=== PATIENT | female | born 1990 | race Caucasian/White ===

== ENCOUNTER 2018-04-13 14:45 | Observation (INO) | payer MEDICAID ==
[~2018-04-13] VITALS: Ht 165.1 cm; Wt 76.2 kg
[2018-04-13] MEDS ORDERED: PNV1TABL76 PO (15:14)
[2018-04-13] MEDS ORDERED: ACETAMINOPHEN 500MG TABLET PO NR (15:45)
[2018-04-13] MEDS ORDERED: LACTATED RINGERS 1,000 ML IV SCH (15:45)
[2018-04-13 16:10] LABS: CLARITY URINE CLEAR (CLEAR); COLOR URINE YELLOW (YELLOW); KETONES URINE NEGATIVE (NEGATIVE); LEUKOCYTE ESTERASE URINE 2+ (NEGATIVE); NITRITE URINE NEGATIVE (NEGATIVE); OCCULT BLOOD URINE NEGATIVE (NEGATIVE); PH URINE 7.5 (4.5-8.0); PROTEIN URINE NEGATIVE (NEGATIVE); SPECIFIC GRAVITY URINE 1.016 (1.005-1.030); UROBILINOGEN URINE 0.2 E.U./dL (0.2-1.0)
== END 2018-04-13 18:00 | disposition home or self-care (01) ==
LOC: L&D 14:45 → EDSEX 14:45
PROVIDERS: ADMIT Obstetrics & Gynecology; ATTEND Obstetrics & Gynecology
DX: O26.892 Other specified pregnancy related conditions, second trimester (principal); R10.32 Left lower quadrant pain; Z3A.21 21 weeks gestation of pregnancy
CPT/HCPCS: 81003; 96360; 99281; G0378; J7120

== ENCOUNTER 2018-04-16 08:46 | Observation (INO) | payer MEDICAID ==
[~2018-04-16] VITALS: Ht 165.1 cm; Wt 81.6 kg
[~2018-04-16 08:46] MED LIST: PNV1TABL76 PO
== END 2018-04-16 10:30 | disposition home or self-care (01) ==
LOC: L&D 08:46 → EDSEX 08:46
PROVIDERS: ADMIT Specialist; ATTEND Specialist
DX: O26.892 Other specified pregnancy related conditions, second trimester (principal); R10.10 Upper abdominal pain, unspecified; Z3A.21 21 weeks gestation of pregnancy
CPT/HCPCS: 99281; G0378

== ENCOUNTER 2018-04-19 16:55 | Emergency (ER) | payer MEDICAID ==
[~2018-04-19] VITALS: Ht 165.1 cm; Wt 82.0 kg
[2018-04-19 18:01] LABS: CLARITY URINE CLEAR (CLEAR); COLOR URINE YELLOW (YELLOW); KETONES URINE NEGATIVE (NEGATIVE); LEUKOCYTE ESTERASE URINE TRACE (NEGATIVE); NITRITE URINE NEGATIVE (NEGATIVE); OCCULT BLOOD URINE NEGATIVE (NEGATIVE); PH URINE 7.5 (4.5-8.0); PROTEIN URINE NEGATIVE (NEGATIVE); SPECIFIC GRAVITY URINE 1.013 (1.005-1.030); UROBILINOGEN URINE 0.2 E.U./dL (0.2-1.0)
[2018-04-19 18:15] LABS: BASOPHILS % 1.1 % (0.0-2.0); EOSINOPHILS % 4.2 % (0.0-5.0); HEMATOCRIT. 35.4 % (36.0-48.0); HEMOGLOBIN. 12.1 g/dL (12.0-16.0); LYMPHOCYTES % 23.8 % (20.0-50.0); MEAN CORPUSCULAR VOLUME 87.5 fL (81.0-99.0); MONOCYTES % 6.8 % (2.0-8.0); NEUTROPHILS % 64.1 % (40.0-76.0); PLATELET 276 x1000/uL (130-400); RED BLOOD CELL COUNT 4.05 mill/uL (4.2-5.4); RED CELL DISTRIBUTION WIDTH 13.1 % (11.6-14.6)
[2018-04-19 18:23] LABS: CHLORIDE 107 mEq/L (98-107)
[2018-04-19 18:25] LABS: INR 0.9; PROTHROMBIN TIME 9.4 sec (9.4-11.6)
[2018-04-20] MEDS ORDERED: ACETAMINOPHEN 325MG TABLET PO ONE (01:30)
[2018-04-20 03:05] VITALS: BP 117/61
[2018-04-20] MEDS ORDERED: ACETAMINOPHEN 500MG TABLET PO SCH (04:42)
== END 2018-04-20 06:00 | disposition home or self-care (01) ==
LOC: ER 17:07 → L&D 04-20 04:14
PROVIDERS: ADMIT Specialist; ATTEND Specialist
DX: O26.892 Other specified pregnancy related conditions, second trimester (principal); R10.11 Right upper quadrant pain; O99.332 Smoking (tobacco) complicating pregnancy, second trimester; F17.210 Nicotine dependence, cigarettes, uncomplicated; Z3A.22 22 weeks gestation of pregnancy
CPT/HCPCS: 36415; 76705; 80053; 81003; 83690; 85025; 85610; 93005; 99285; G0378

== ENCOUNTER 2018-04-23 11:31 | Observation (INO) | payer MEDICAID ==
[2018-04-23 13:41] LABS: CLARITY URINE CLEAR (CLEAR); COLOR URINE YELLOW (YELLOW); KETONES URINE NEGATIVE (NEGATIVE); LEUKOCYTE ESTERASE URINE 1+ (NEGATIVE); NITRITE URINE NEGATIVE (NEGATIVE); OCCULT BLOOD URINE NEGATIVE (NEGATIVE); PROTEIN URINE NEGATIVE (NEGATIVE); SPECIFIC GRAVITY URINE 1.023 (1.005-1.030); UROBILINOGEN URINE 0.2 E.U./dL (0.2-1.0)
== END 2018-04-23 15:00 | disposition home or self-care (01) ==
LOC: L&D 11:31
PROVIDERS: ADMIT Obstetrics & Gynecology; ATTEND Obstetrics & Gynecology
DX: O99.89 Other specified diseases and conditions complicating pregnancy, childbirth and the puerperium (principal); M54.5 Low back pain; Z3A.22 22 weeks gestation of pregnancy
CPT/HCPCS: 76805; 81003; G0378; 99281

== ENCOUNTER 2018-05-16 09:13 | Observation (INO) | payer MEDICAID ==
[~2018-05-16] VITALS: Ht 165.1 cm; Wt 88.5 kg
[2018-05-16] MEDS ORDERED: SODIUM CHLORIDE 0.9% 1,000 ML IV SCH (09:45)
[2018-05-16 10:55] LABS: CLARITY URINE CLEAR (CLEAR); COLOR URINE YELLOW (YELLOW); KETONES URINE NEGATIVE (NEGATIVE); LEUKOCYTE ESTERASE URINE NEGATIVE (NEGATIVE); NITRITE URINE NEGATIVE (NEGATIVE); OCCULT BLOOD URINE NEGATIVE (NEGATIVE); PH URINE 7.5 (4.5-8.0); PROTEIN URINE NEGATIVE (NEGATIVE); SPECIFIC GRAVITY URINE 1.011 (1.005-1.030); UROBILINOGEN URINE 0.2 E.U./dL (0.2-1.0)
== END 2018-05-16 11:25 | disposition home or self-care (01) ==
LOC: L&D 09:13
PROVIDERS: ADMIT Specialist; ATTEND Specialist
DX: O26.892 Other specified pregnancy related conditions, second trimester (principal); R10.31 Right lower quadrant pain; R11.0 Nausea; Z3A.26 26 weeks gestation of pregnancy
CPT/HCPCS: 81003; 96360; 99281; G0378; J7040; 96361

== ENCOUNTER 2018-05-16 12:12 | Emergency (ER) | payer MEDICAID ==
[~2018-05-16] VITALS: Ht 165.1 cm; Wt 89.0 kg
[2018-05-16 13:53] LABS: BASOPHILS % 0.8 % (0.0-2.0); EOSINOPHILS % 6.6 % (0.0-5.0); HEMATOCRIT. 36.1 % (36.0-48.0); HEMOGLOBIN. 12.2 g/dL (12.0-16.0); LYMPHOCYTES % 25.4 % (20.0-50.0); MEAN CORPUSCULAR HEMOGLOBIN 29.8 pg (28.0-32.0); MEAN CORPUSCULAR VOLUME 88.2 fL (81.0-99.0); MONOCYTES % 5.5 % (2.0-8.0); NEUTROPHILS % 61.7 % (40.0-76.0); PLATELET 246 x1000/uL (130-400); RED BLOOD CELL COUNT 4.09 mill/uL (4.2-5.4); RED CELL DISTRIBUTION WIDTH 13.5 % (11.6-14.6)
[2018-05-16 14:00] LABS: CHLORIDE 106 mEq/L (98-107)
[2018-05-16 14:02] LABS: CLARITY URINE CLEAR (CLEAR); COLOR URINE YELLOW (YELLOW); KETONES URINE NEGATIVE (NEGATIVE); LEUKOCYTE ESTERASE URINE 1+ (NEGATIVE); NITRITE URINE NEGATIVE (NEGATIVE); OCCULT BLOOD URINE NEGATIVE (NEGATIVE); PROTEIN URINE NEGATIVE (NEGATIVE); SPECIFIC GRAVITY URINE 1.015 (1.005-1.030); UROBILINOGEN URINE 0.2 E.U./dL (0.2-1.0)
[2018-05-16] MEDS ORDERED: METOCLOPRAMIDE HCL 10MG/2ML VIAL IV ONE (14:15)
[2018-05-16] MEDS ORDERED: DIPHENHYDRAMINE 50MG/ML VIAL IV ONE (14:15)
[2018-05-16 14:24] LABS: B-HCG QUANTITATIVE 6838 mIU/mL (<3)
[2018-05-16 17:00] VITALS: BP 102/60
== END 2018-05-16 17:15 | disposition home or self-care (01) ==
LOC: ER 12:12
DX: O32.1XX0 Maternal care for breech presentation, not applicable or unspecified (principal); O26.892 Other specified pregnancy related conditions, second trimester; F41.9 Anxiety disorder, unspecified; J06.9 Acute upper respiratory infection, unspecified; D72.829 Elevated white blood cell count, unspecified; Z3A.26 26 weeks gestation of pregnancy; Z98.890 Other specified postprocedural states
CPT/HCPCS: 36415; 76815; 80053; 81003; 83690; 84702; 85025; 96374; 96375; 99285; J1200; J2765; Z7610

== ENCOUNTER 2018-06-03 20:55 | Observation (INO) | payer MEDICAID ==
[~2018-06-03] VITALS: Ht 165.1 cm; Wt 88.5 kg
[2018-06-03] MEDS ORDERED: PROG50VI5 IM (22:03)
== END 2018-06-03 22:50 | disposition home or self-care (01) ==
LOC: L&D 20:55
PROVIDERS: ADMIT Obstetrics & Gynecology; ATTEND Obstetrics & Gynecology
DX: O26.893 Other specified pregnancy related conditions, third trimester (principal); R10.9 Unspecified abdominal pain; M25.532 Pain in left wrist; Z3A.29 29 weeks gestation of pregnancy; W19.XXXA Unspecified fall, initial encounter; Y93.89 Activity, other specified; Y92.89 Other specified places as the place of occurrence of the external cause; Y99.8 Other external cause status
CPT/HCPCS: G0378 ×2

== ENCOUNTER 2018-06-03 22:51 | Emergency (ER) | payer MEDICAID ==
[~2018-06-03] VITALS: Ht 165.1 cm; Wt 88.0 kg
[~2018-06-03 22:51] MED LIST changes: +PROG50VI5 IM
[2018-06-04] MEDS ORDERED: ACETAMINOPHEN 325MG TABLET PO ONE (03:45)
[2018-06-04 05:01] VITALS: BP 110/65
== END 2018-06-04 06:35 | disposition home or self-care (01) ==
LOC: ER 22:51
DX: O9A.213 Injury, poisoning and certain other consequences of external causes complicating pregnancy, third trimester (principal); S62.002A Unspecified fracture of navicular [scaphoid] bone of left wrist, initial encounter for closed fracture; Z3A.29 29 weeks gestation of pregnancy; W01.0XXA Fall on same level from slipping, tripping and stumbling without subsequent striking against object, initial encounter; Y93.89 Activity, other specified; Y92.89 Other specified places as the place of occurrence of the external cause; Y99.8 Other external cause status
CPT/HCPCS: 29125; 73130; 99281; 99284